=== PATIENT | male | born 1990 | race African-American/Black ===

== ENCOUNTER → 2017-12-14 | Outpatient (CLI) | payer BC, MEDICAID ==
[2017-12-14 12:00] LABS: EOS % 0.2 % (0.0-4.0); HEMATOCRIT 42.1 % (42.0-52.0); LYMPH# 1.7 (1.50-4.00); MEAN CELL VOLUME 90 fl (78-100); MEAN CORPUSCULAR HEMOGLOBIN 30 pg (27-31); MEAN CORPUSCULAR HGB CONC 33 g/dL (33-37); MONO # 0.5 (0.20-0.80); NEU # 2.6 (1.40-6.50); PLATELET COUNT 130 K/mm3 (130-400); RED BLOOD COUNT 4.67 M/mm3 (4.20-5.60); RED CELL DISTRIBUTION WIDTH 13.5 % (11.5-14.5); WHITE BLOOD COUNT 4.8 K/mm3 (4.8-10.8)
[2017-12-14 12:07] LABS: ALBUMIN 4.1 g/dL (3.5-5.0); BUN/CREATININE RATIO 6.8 (6.0-26.0); CALCIUM 9.1 mg/dL (8.4-10.2); POTASSIUM 3.9 mmol/L (3.6-5.0); TOTAL BILIRUBIN 0.6 mg/dL (0.2-1.3); TOTAL PROTEIN 7.5 g/dL (6.3-8.2)
[2017-12-14 12:21] LABS: MEAN PLATELET VOLUME 12.2 fl (7.4-10.4)
[2017-12-14 13:10] LABS: ERYTHROCYTE SEDIMENTATION RATE 1 mm/hr (0-15)
== END ==
LOC: LAB 11:02
PROVIDERS: Internal Medicine
DX: K90.89 Other intestinal malabsorption (principal); E03.9 Hypothyroidism, unspecified; F31.12 Bipolar disorder, current episode manic without psychotic features, moderate; F79 Unspecified intellectual disabilities

== ENCOUNTER → 2019-09-22 | Outpatient (CLI) | payer BC, MEDICAID ==
[2019-09-22 14:51] LABS: EOS % 0.1 % (0.0-4.0); HEMATOCRIT 43.6 % (42.0-52.0); HEMOGLOBIN 14.5 g/dL (13.5-18.0); LYMPH# 1.1 (1.50-4.00); MEAN CELL VOLUME 90 fl (78-100); MEAN CORPUSCULAR HEMOGLOBIN 30 pg (27-31); MEAN CORPUSCULAR HGB CONC 33 g/dL (33-37); MEAN PLATELET VOLUME 11.5 fl (7.4-10.4); MONO # 0.8 (0.20-0.80); NEU # 5.2 (1.40-6.50); PLATELET COUNT 113 K/mm3 (130-400); RED BLOOD COUNT 4.83 M/mm3 (4.20-5.60); RED CELL DISTRIBUTION WIDTH 13.2 % (11.5-14.5); WHITE BLOOD COUNT 7.2 K/mm3 (4.8-10.8)
[2019-09-22 15:09] LABS: ALBUMIN 4.4 g/dL (3.5-5.0); POTASSIUM 3.6 mmol/L (3.5-5.1)
[2019-09-22 15:10] LABS: CALCIUM 8.2 mg/dL (8.3-10.5)
[2019-09-22 15:11] LABS: TOTAL PROTEIN 7.3 g/dL (6.4-8.3)
[2019-09-22 15:13] LABS: TOTAL BILIRUBIN 0.6 mg/dL (0.2-1.2)
[2019-09-22 15:57] LABS: ERYTHROCYTE SEDIMENTATION RATE 1 mm/hr (0-15)
== END ==
LOC: LAB 14:30
PROVIDERS: Internal Medicine
DX: F31.12 Bipolar disorder, current episode manic without psychotic features, moderate (principal); K90.9 Intestinal malabsorption, unspecified; E03.9 Hypothyroidism, unspecified; F79 Unspecified intellectual disabilities

== ENCOUNTER → 2021-03-21 | Outpatient (CLI) | payer BC, MEDICAID ==
[2021-03-21 16:09] LABS: BASO # 0.02 (0.02-0.10); EOS # 0.02 (0.04-0.40); EOS % 0.3 % (0.0-4.0); HEMATOCRIT 42.9 % (42.0-52.0); HEMOGLOBIN 14.6 g/dL (13.5-18.0); LYMPH# 2.08 (1.50-4.00); MEAN CELL VOLUME 91 fl (78-100); MEAN CORPUSCULAR HEMOGLOBIN 31 pg (27-31); MEAN CORPUSCULAR HGB CONC 34 g/dL (33-37); MEAN PLATELET VOLUME 11.7 fl (7.4-10.4); MONO # 0.54 (0.20-0.80); NEU # 3.36 (1.40-6.50); PLATELET COUNT 158 K/mm3 (130-400); RED BLOOD COUNT 4.74 M/mm3 (4.20-5.60); RED CELL DISTRIBUTION WIDTH 12.6 % (11.5-14.5)
[2021-03-21 16:18] LABS: ALBUMIN 4.4 g/dL (3.5-5.0); POTASSIUM 3.8 mmol/L (3.5-5.1)
[2021-03-21 16:19] LABS: CALCIUM 9.4 mg/dL (8.3-10.5)
[2021-03-21 16:20] LABS: TOTAL PROTEIN 7.6 g/dL (6.4-8.3)
[2021-03-21 16:22] LABS: TOTAL BILIRUBIN 0.5 mg/dL (0.2-1.2)
== END ==
LOC: LAB 15:53
PROVIDERS: Internal Medicine
DX: K90.9 Intestinal malabsorption, unspecified (principal); E03.4 Atrophy of thyroid (acquired); F31.12 Bipolar disorder, current episode manic without psychotic features, moderate; E78.2 Mixed hyperlipidemia

== ENCOUNTER → 2022-11-23 | Outpatient (CLI) | payer MEDICAID ==
[2022-11-23 15:34] LABS: BASO # 0.01 K/mm3 (0.02-0.10); EOS # 0.01 K/mm3 (0.04-0.40); EOS % 0.2 % (0.0-4.0); HEMATOCRIT 44.8 % (42.0-52.0); HEMOGLOBIN 15.1 g/dL (13.5-18.0); MEAN CELL VOLUME 92 fl (78-100); MEAN CORPUSCULAR HEMOGLOBIN 31 pg (27-31); MEAN CORPUSCULAR HGB CONC 34 g/dL (33-37); MEAN PLATELET VOLUME 11.6 fl (7.4-10.4); MONO # 0.46 K/mm3 (0.20-0.80); NEU # 2.34 K/mm3 (1.40-6.50); PLATELET COUNT 134 K/mm3 (130-400); RED BLOOD COUNT 4.87 M/mm3 (4.20-5.60); WHITE BLOOD COUNT 4.7 K/mm3 (4.8-10.8)
[2022-11-23 15:36] LABS: ALBUMIN 4.3 g/dL (3.5-5.0); POTASSIUM 4.3 mmol/L (3.5-5.1)
[2022-11-23 15:37] LABS: CALCIUM 9.6 mg/dL (8.3-10.5)
[2022-11-23 15:38] LABS: TOTAL PROTEIN 7.2 g/dL (6.4-8.3)
[2022-11-23 15:40] LABS: TOTAL BILIRUBIN 0.5 mg/dL (0.2-1.2)
[2022-11-23 16:23] LABS: PH-URINE 5.5 (5.0 - 8.0); URINE APPEARANCE CLEAR; URINE BILIRUBIN NEGATIVE (NEGATIVE); URINE BLOOD NEGATIVE (NEGATIVE); URINE COLOR LIGHT YELLOW; URINE GLUCOSE NEGATIVE (NEGATIVE); URINE KETONE NEGATIVE (NEGATIVE); URINE LEUKOCYTE ESTERASE NEGATIVE (NEGATIVE); URINE NITRATE NEGATIVE (NEGATIVE); URINE PROTEIN(semi-quant) TRACE (NEGATIVE); URINE UROBILINOGEN NORMAL (NORMAL); URINE WBC 0-1 /hpf (0-3)
[2022-11-24 20:11] LABS: VITAMIN D 1,25 DIHYDROXY 39.8 pg/mL (())
== END ==
LOC: LAB 15:08
PROVIDERS: Internal Medicine
DX: E03.4 Atrophy of thyroid (acquired) (principal); K90.9 Intestinal malabsorption, unspecified; F31.12 Bipolar disorder, current episode manic without psychotic features, moderate; E61.1 Iron deficiency; E55.9 Vitamin D deficiency, unspecified; E78.2 Mixed hyperlipidemia; S01.01XA Laceration without foreign body of scalp, initial encounter; N39.0 Urinary tract infection, site not specified

== ENCOUNTER → 2023-10-11 | Outpatient (CLI) | payer MEDICARE, MEDICAID ==
[2023-10-11 11:26] LABS: BASO # 0.01 K/mm3 (0.02-0.10); EOS # 0.01 K/mm3 (0.04-0.40); EOS % 0.3 % (0.0-4.0); HEMATOCRIT 44.4 % (42.0-52.0); HEMOGLOBIN 14.9 g/dL (13.5-18.0); MEAN CELL VOLUME 92 fl (78-100); MEAN CORPUSCULAR HEMOGLOBIN 31 pg (27-31); MEAN CORPUSCULAR HGB CONC 34 g/dL (33-37); MEAN PLATELET VOLUME 11.7 fl (7.4-10.4); MONO # 0.36 K/mm3 (0.20-0.80); NEU # 2.03 K/mm3 (1.40-6.50); PLATELET COUNT 138 K/mm3 (130-400); RED BLOOD COUNT 4.84 M/mm3 (4.20-5.60); RED CELL DISTRIBUTION WIDTH 12.6 % (11.5-14.5); WHITE BLOOD COUNT 3.8 K/mm3 (4.8-10.8)
[2023-10-11 11:29] LABS: ALBUMIN 4.4 g/dL (3.5-5.0)
[2023-10-11 11:30] LABS: CALCIUM 9.6 mg/dL (8.3-10.5)
[2023-10-11 11:31] LABS: TOTAL PROTEIN 7.1 g/dL (6.4-8.3)
[2023-10-11 11:33] LABS: TOTAL BILIRUBIN 0.5 mg/dL (0.2-1.2)
[2023-10-13 07:07] LABS: VITAMIN D 1,25 DIHYDROXY 56.9 pg/mL (())
== END ==
LOC: LAB 11:02
PROVIDERS: Internal Medicine
DX: E03.4 Atrophy of thyroid (acquired) (principal); K90.9 Intestinal malabsorption, unspecified; F31.12 Bipolar disorder, current episode manic without psychotic features, moderate; E78.2 Mixed hyperlipidemia